=== PATIENT | male | born 2005 | race Caucasian/White ===

== ENCOUNTER 2025-07-12 18:14 | Emergency (ER) | payer OTHER ==
[~2025-07-12] VITALS: Ht 157.5 cm; Wt 88.5 kg
[2025-07-12 20:58] LABS: BASO # 0.0 10^3/uL (0.0-0.2); BASO % 0.4 % (0.0-1.0); EOS # 0.0 10^3/uL (0.0-0.5); EOS % 0.4 % (0.0-3.0); LYMPH # 1.7 10^3/uL (1.5-5.0); LYMPH % 23.4 % (24.0-44.0); MONO # 0.7 10^3/uL (0.0-0.8); MONO % 9.7 % (2.0-8.0); NEUTROPHILS # 4.9 10^3/uL (1.5-8.5); NEUTROPHILS % 65.8 % (36.0-66.0); PLATELET COUNT, AUTOMATED 199 10^3/uL (150-450)
[2025-07-12 21:19] LABS: CK-MB VALUE MASS 3.5 NG/ML (<3.6)
[2025-07-12 21:21] LABS: CPK CREATINE PHOSPHOKINASE 539 U/L (46-171); MB/CK RELATIVE INDEX 0.64 (< OR =4)
[2025-07-12 21:22] LABS: ALT/SGPT 36 U/L (7.0-40); AST/SGOT 34 U/L (<34); CALCIUM LEVEL 9.3 MG/DL (8.5-10.1); CARBON DIOXIDE LEVEL 27 MMOL/L (20-31); CHLORIDE LEVEL 106 MMOL/L (98-107); CREATININE FOR GFR 1.01 MG/DL (0.70-1.30); GLOMERULAR FILTRATION RATE > 90.0 (>60); MAGNESIUM LEVEL 2.2 MG/DL (1.8-2.4); POTASSIUM SERUM 4.4 MMOL/L (3.5-5.1); SODIUM LEVEL 143 MMOL/L (136-145)
[2025-07-12 21:23] LABS: FREE T4 1.29 NG/DL (0.83-1.43)
[2025-07-12 22:17] VITALS: BP 139/68; TEMP 98.5; O2SAT 98
== END 2025-07-12 22:22 | disposition home or self-care (01) ==
LOC: M ED 18:14
DX: J06.9 Acute upper respiratory infection, unspecified (principal); B34.8 Other viral infections of unspecified site